=== PATIENT | female | born 1955 | race Caucasian/White ===

== ENCOUNTER → 2016-09-03 | Outpatient (CLI) | payer BC ==
[~2016-09-03] MED LIST: AGM875 PO; ALL180 PO; CLIMARA PATCH TD; FRRS300 PO; HYDC25 PO; IBUP600T44 PO; OXYC-57 PO; PARO1TAB27 PO
== END | disposition home or self-care (01) ==
LOC: C.CPL 11:45
PROVIDERS: ATTEND Orthopaedic Surgery
DX: Z01.818 Encounter for other preprocedural examination (principal); S83.232A Complex tear of medial meniscus, current injury, left knee, initial encounter; X58.XXXA Exposure to other specified factors, initial encounter

== ENCOUNTER → 2016-12-15 | Outpatient (CLI) | payer BC ==
--- NOTE | 2016-12-15 15:29 | MAMMOGRAPHY REPORT ---
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 Also annual bilateral exam. TECHNIQUE: Bilateral breast tomosynthesis in addition to standard 2D mammography was performed. Spo t magnification right CC and ML views were also obtained. Current study was also evaluated with a [employer] Aided Detection (CAD) system. COMPARISON: Comparison is made to exams dated: 06/16/2016 mammogram, 12/17/2015 mammogram, 12/17/2015 stereotactic biopsy, 12/12/2015 ultrasound, 12/12/2015 mammogram, and 11/28/2015 mammogram - [facility]. BREAST COMPOSITION: There are scattered areas of fibroglandular density in both breasts. FINDINGS: There are benign oil cysts grouped in the right upper outer middle to posterior breast. A stable metallic biopsy marker in the 9:00 anterior right breast. The remaining calcification near the biopsy site seen on the spot magnification views obtained 06/16/2016 is less conspicuous. Overa ll, there are no new suspicious microcalcifications near the prior biopsy site in the right breast, or elsewhere throughout either breast. No new suspicious mass, developing asymmetry or architectura l distortion. Recommend follow-up in 12 months for bilateral mammography and to reevaluate the biop sy-proven papilloma in the right breast. IMPRESSION: ACR-BI-RADS CATEGORY 3: PROBABLY BENIGN Stable bilateral mammograms, including a biopsy site from previous biopsy-proven papilloma in the 9: 00 anterior right breast. Bilateral diagnostic mammograms including a repeat right spot magnificati on views are recommended in 12 months. These results and recommendations were discussed with the patient at the time of the exam. She tent atively scheduled a follow-up appointment prior to leaving our department. Approximately 10% of breast cancers are not detected with mammography. A negative mammographic repor t should not delay biopsy if a clinically suggestive mass is present. Martha Krishnan M.D. ay/:12/15/2016 11:26:12 Services Coordinator: Ashish CASTRO(Farhat)([place]), [facility] letter sent: Follow Up Recommended 3 BI-RADS Code: ACR-BI-RADS Category 3: Probably Benign
== END | disposition home or self-care (01) ==
LOC: C.MAMM 10:22
PROVIDERS: ATTEND Physician Assistant
DX: R92.8 Other abnormal and inconclusive findings on diagnostic imaging of breast (principal)

== ENCOUNTER → 2017-12-15 | Outpatient (CLI) | payer BC ==
--- NOTE | 2017-12-15 15:31 | MAMMOGRAPHY REPORT ---
BILATERAL DIGITAL DIAGNOSTIC MAMMOGRAM TOMOSYNTHESIS WITH CAD: 12/15/2017 CLINICAL HISTORY: 62-year-old woman presents for close follow-up in the right breast. A stereotactic guided biopsy performed in the lateral right breast yielded a papilloma without atypia, and we will continue close follow-up imaging to ensure stability. No surgical excision has been performed. Julia ent is also due for annual bilateral screening mammography. TECHNIQUE: Bilateral breast tomosynthesis in addition to standard 2D mammography was performed. Spot magnification right CC and ML views were also obtained. Current study was also evaluated with a [employer] Aided Detection (CAD) system. COMPARISON: Comparison is made to exams dated: 12/15/2016 mammogram, 06/16/2016 mammogram, 12/17/2015 stereotactic biopsy, 12/12/2015 ultrasound, 11/28/2015 mammogram, and 09/16/2010 mammogram - [facility]. BREAST COMPOSITION: There are scattered areas of fibroglandular density in both breasts. FINDINGS: There is a stable dumbbell-shaped biopsy marker clip in the 9:00 anterior right breast, den oting the site of biopsy-proven papilloma. Best seen on the spot magnification views, is a small res idual focal asymmetry and associated amorphous microcalcifications, measuring 3.2 x 2.5 mm, previousl y measured 3.2 x 3.0 mm, but given slight differences in positioning this is considered stable. No n ew suspicious masses, calcifications, asymmetries or areas of architectural distortion are identified bilaterally. There are also benign rim calcifications in the right breast. IMPRESSION: ACR-BI-RADS CATEGORY 3: PROBABLY BENIGN 1. Stable mammographic appearance of the right breast, including stable 3.2 mm residua of a biopsy-p roven papilloma in the 9:00 anterior right breast. The continued stability suggests a benign/bland p apilloma but another close follow-up including spot magnification views in 12 months is recommended t o ensure longer stability. 2. Stable mammographic appearance of the left breast, without mammographic evidence of malignancy. Advise follow-up in 12 months. These results and recommendations were discussed with the patient at the time of the exam. She tenta tively scheduled a follow-up appointment prior to leaving her department. Approximately 10% of breast cancers are not detected with mammography. A negative mammographic report should not delay biopsy if a clinically suggestive mass is present. Martha Krishnan M.D. ay/:12/15/2017 10:51:12 Biomass Technician: Kaur CASTRO(R)(M), [facility] letter sent: Follow Up Recommended 3 BI-RADS Code: ACR-BI-RADS Category 3: Probably Benign
== END | disposition home or self-care (01) ==
LOC: C.MAMM 10:21
PROVIDERS: ATTEND Physician Assistant
DX: Z09 Encounter for follow-up examination after completed treatment for conditions other than malignant neoplasm (principal); D24.1 Benign neoplasm of right breast